=== PATIENT | female | born 1960 | race Caucasian/White ===

== ENCOUNTER 2016-08-16 10:14 | Day surgery (SDC) | payer OTHER ==
[~2016-08-16 10:14] MED LIST: Buffered Lidocaine 1% SYRIN* 3 ML/SYR SYRINGE INTRADERM ONE; Famotidine TAB* 20 MG PO ONE; Metoclopramide TAB* 10 MG PO ONE
[2016-08-16] MEDS ORDERED: Famotidine TAB* 20 MG ONE (10:15)
[2016-08-16] MEDS ORDERED: Metoclopramide TAB* 10 MG ONE (10:15)
[2016-08-16] MEDS ORDERED: Bupivacaine 0.5% W/EPI SDV* 30 ML VIAL ONE (13:04)
[2016-08-16] MEDS ORDERED: Lidocaine 2% PF * 5 ML VIAL ONE (13:08)
[2016-08-16] MEDS ORDERED: Propofol* 10 MG/ML 20 ML BTL IV PUSH ONE (13:08)
[2016-08-16] MEDS ORDERED: Atracurium* 10 MG/ML 10 ML VIAL ONE (13:08)
[2016-08-16] MEDS ORDERED: fentaNYL* 50 MCG/ML 2 ML VIAL (100 MCG VIAL) ONE (13:08)
[2016-08-16] MEDS ORDERED: Ondansetron INJ* 2 MG/ML VIAL IV PRN (13:51)
[2016-08-16] MEDS ORDERED: oxyCODONE/Acetamin 5/325 MG* TAB PO PRN ×2 (13:51→14:41)
[2016-08-16] MEDS ORDERED: fentaNYL* 50 MCG/ML 2 ML VIAL (100 MCG VIAL) IV PRN (13:51)
[2016-08-16] MEDS ORDERED: DiMENhydriNATE IV* 50 MG/ML VIAL IV PUSH PRN (13:51)
[2016-08-16] MEDS ORDERED: DiMENhydriNATE IV* 50 MG/ML VIAL ONE (15:21)
[2016-08-16 15:57] VITALS: BP 109/67
--- NOTE | 2016-08-17 06:15 | OP ---
DATE OF OPERATION: 08/16/16 [facility] DATE OF : 60 SURGEON: Andres Bernal MD RETAIL DELIVERY DRIVER: TARAN Bernard ANESTHESIOLOGIST: Dr. Guerrero. ANESTHESIA: General endotracheal. PRE-OP DIAGNOSIS: Symptomatic cholelithiasis. POST-OP DIAGNOSES: 1. Symptomatic cholelithiasis. 2. Umbilical hernia. OPERATIVE PROCEDURES: 1. Laparoscopic cholecystectomy. 2. Open umbilical hernia repair. ESTIMATED BLOOD LOSS: Minimal. IV FLUIDS: Crystalloid. SPECIMEN: Gallbladder contents. DRAINS: None. COMPLICATIONS: None. COUNTS: The instrument, needle, and sponge counts were correct. DESCRIPTION OF PROCEDURE: The patient was brought to the operating room, placed on table supine. Sequential compression devices were placed on both lower extremities and general anesthesia was administered. Her abdomen was prepped and draped in the usual sterile fashion. Time-out was performed. The patient's skin and soft tissue were infiltrated with local anesthetic prior to making each incision. Entry to the abdomen was through an infraumbilical curvilinear incision using an open technique. There was a small umbilical hernia defect less than 1 cm size that was identified and this had fat incarcerated within it, which was able to be reduced. A 5 mm trocar was placed through the umbilical hernia defect into the peritoneal cavity, which was then insufflated with carbon dioxide to a pressure of 15 mmHg. Laparoscope was introduced and the addition of a 5 mm trocar in the subxiphoid position and 2 additional 5 mm trocars in the right upper quadrant. The initial trocar infraumbilically was replaced with a 12 mm trocar as well. The gallbladder was identified. It did not appear to be acutely inflamed. There were adhesions from omentum to the gallbladder. The gallbladder was grasped at the fundus, retracted cephalad, and the infundibulum was identified. The peritoneum investing the gallbladder was incised and peeled away using sharp and blunt dissection. The cystic artery and cystic duct were readily available and were able to be bluntly dissected out, doubly clipped, and divided after obtaining a critical view. The gallbladder was freed from its attachments to the liver using the hook, cautery, and staying in an avascular plane. There was an inadvertent cholecystotomy made and this spillage was minimized by grasping the site and using this as a site of retraction. After dividing the gallbladder attachments to the liver completely, it was placed into a retrieval bag and retrieved through the umbilical site. Subsequently, lavage was performed with a liter of warm saline in order to assure that the perihepatic spaces were clear of any inadvertent bile spillage. The clips were inspected and noted to be intact, and hemostasis was excellent. The ports were removed under direct visualization and carbon dioxide was released. The umbilical stalk was dissected free and the defects were identified. The umbilical hernia defect was closed with 0 Polysorb in a aiczxn-[id number]-[id number] fashion. The umbilical stalk was reapproximated to the anterior abdominal wall with 3-0 Polysorb. Skin incisions were closed with 4-0 Monocryl in a subcuticular fashion. Steri-Strips were applied. The patient tolerated the procedure well. She was extubated uneventfully and she was transferred to recovery room in stable condition. CC: Romy Gooden MD* [id number]/CPS #: [id number] [email or web address]
== END 2016-08-16 16:01 | disposition home or self-care (01) ==
LOC: OR 10:14
PROVIDERS: ATTEND Surgery
DX: K80.10 Calculus of gallbladder with chronic cholecystitis without obstruction (principal); K42.9 Umbilical hernia without obstruction or gangrene; Z87.891 Personal history of nicotine dependence
CPT/HCPCS: 88304; A9270-GY; C1776; J1240; J2704; J3010

== ENCOUNTER 2018-08-13 14:00 | Emergency (ER) | payer OTHER ==
--- OUTSIDE RECORDS SUMMARY | 2018-08-13 14:05 | XMS REPORT | Continuity of Care Document ---
:1960 External Reference #:[id number] Author Name RoxanaLOUISA Baires Address [address] [place] [address] Care Team Providers Name Role Phone Romy Gooden Care Team Information Compressor Service Technician Unavailable Romy Gooden Primary Care Physician Unavailable Payers Date Identification Numbers Payment Provider Subscriber Policy Number: [id number] [facility] Alma Lula Crum PayID: [id number] [address] [address] [place] [address] Advance Directives Description No Information Available Problems Description No Information Family History Date Family Member(s) Observation Comments General Breast Cancer sister. General Coronary Artery Disease (CAD) father's side. Father due to CT () - 56 yo Mother due to Auto Accident () First Daughter Unremarkable Number of Siblings Siblings: 2 First Sister Breast Cancer [place]? Second Sister alcoholism in remission s/p esophageal rupture. [facility]. Maternal Grandfather due to Stroke () - 60's Maternal Grandmother due to Natural Causes () - 87 yo Social History Type Date Description Comments Sex Unknown Marital Status Patient is Sleep Typically sleeps 7 hours a night doesn't have a regular sleep time. Occupation Unemployed Tobacco Use Start: Unknown End: Former Cigarette Smoker quit at about 45 yo Unknown 1 1/2 ppd x 15 years. ETOH Use Rarely consumes alcohol a couple of drinks a year. Exercise Type/Frequency Does not exercise Current currently Seat Belt/Car Seat Always uses a seat belt Currently Active The patient is currently not sexually active Allergies, Adverse Reactions, Alerts Date Description Reaction Status Severity Comments 07/15/1997 Sulfa Drugs Active 07/15/1997 Amoxicillin Active 01/20/2016 Penicillins Allergic asthma, Urticaria Active Medications Medication Date Status Form Strength Qnty SIG Indications Ordering Provider Citalopram / Active Tablets 20mg 90tabs 1 by Roxana Hanbromide 0000 mouth [place]ider, every day [employer] Multi For Her / Active Capsules once Unknown 0000 daily No Active 12/28/ Hx Unknown Medications 2017 - 2018 Nitrofurantoin 12/23/ Hx Capsules 100mg 10caps 1 by R35.0 Jamee Monohydrate/Macr 2018 - mouth [place], ocrystals 12/28/ twice a Afnp-C 2017 day x 5days with meals No Active 06/24/ Hx Unknown Medications 2016 - 2017 No Active 02/15/ Hx Unknown Medications 2015 - 2015 Physical 02/15/ Hx evaluate M25.551 Romy Joseph Therapy 2015 - and treat Giacomo, 06/24/ left hip M.D. 2016 pain. Medrol 02/15/ Hx TBPK 4mg 21unit use as M25.551 Romy Joseph 2016 - s directed Giacomo, 06/24/ M.D. 2017 Glucosamine 10/21/ Hx Capsules 1500Com once Constance Chondroitin 1500 2015 - daily Jez Fernandez 02/15/ [employer] 2016 No Active 09/01/ Hx Unknown Medications 2015 - 2015 Zovirax 08/25/ Hx Ointment 5% 30gm Apply to Emy 2015 - affected TEREZA Chairez 02/15/ area 2016 every 3 hours, six times a day until healed Neomycin Sulfate 01/26/ Hx Tablets 500mg 1 po qd Emy 2014 - [place] 2014 No Active 10/17/ Hx Unknown Medications 2014 - 2014 Cefuroxime 10/17/ Hx Tablets 500mg 14tabs 1 by 611.72 Emy Axetil 2014 - mouth [employer] 10/24/ twice a 2014 day x 7 days Physical Therapy 10/17/ Hx evaluate 719.45 Emy 2014 - and treat Contreras [employer] 01/26/ right hip 2014 pain Fexofenadine HCL 09/22/ Hx Tablets 180mg 30tabs 1 po qd Roxaan 2008 - chon Agarwal, 06/17/ M.D. 2009 may take Sudafed bid Elizabeth D 24H 04/10/ Hx 10unit 1 po qd 388.9 Chemo Vega 2008 Thelma Vyas M.D. 2008 Note 12/29/ Hx PT Had HX Jamee 2004 - Of [place], 12/31/ Chicken Afnp-C 2005 Pox AT Age 6 [place] 04/18/ Hx One qd Family 2001 - Medicine 06/17/ Associates 2010 [place] Zithromax 03/09/ Hx 250mg 4units 1 Tab qd Sun 1998 - 2 Mellisa, 03/14/ Thru 5 Afnp-C 1998 Ceftin 05/30/ Hx 250mg 20unit PO bid Mike Lundberg 1998 - For 10 Breiman, 06/09/ Days M.D. 1998 Doxycycline 07/15/ Hx 100mg 20unit 1 PO bid Tylor Shaikh 1997 - s Midura, 05/20/ M.D. 1998 Medications Administered in Office Medication Date Status Form Strength Qnty SIG Indications Ordering Provider TB Intradermal Administered Injection Romy Weems 016 Yadi Gooden TB Intradermal Administered Injection Romy Weems 015 Yadi Gooden Immunizations CPT Code Status Date Vaccine Lot # [id number] Given 05/06/2016 Hepatitis B Immunization, adult dosage, for [id number] intramuscular use 64298 Given 01/11/2016 Influenza Vac, Quadrivalent, [place] [id number] Given 12/18/2015 Hepatitis B Immunization, adult dosage, for [id number] intramuscular use 87316 Given 10/29/2015 MMR Virus Immunization [id number] 64883 Given 10/22/2015 Hepatitis B Immunization, adult dosage, for [id number] intramuscular use 36222 Given 10/22/2015 Tdap Tetanus, W Pertussis [id number] 79032 Given 01/26/2015 MMR Virus Immunization [id number] 27035 Given 06/17/2009 Tetanus And Diptheria Adult Preservative Free [id number] >7Yrs Vital Signs Date Vital Result Comment 07/17/2018 1:42pm BP Systolic 98 mmHg BP Diastolic 52 mmHg Heart Rate 60 /min Body Temperature 97.0 F Respiratory Rate 17 /min Height 61 inches 5'1" Weight 124.25 lb BMI (Body Mass Index) 23.5 kg/m2 Right Visual Acuity Distance 20/25 w/ corrected lenses Left Visual Acuity Distance 20/30 w/ corrected lenses 06/19/2018 7:28pm BP Systolic 108 mmHg BP Diastolic 68 mmHg Heart Rate 76 /min Body Temperature 97.5 F Respiratory Rate 17 /min Height 61 inches 5'1" Weight 124.50 lb BMI (Body Mass Index) 23.5 kg/m2 12/23/2017 9:16am BP Systolic 110 mmHg BP Diastolic 60 mmHg Heart Rate 68 /min Body Temperature 97.9 F Respiratory Rate 16 /min Height 61 inches 5'1" Weight 123.00 lb BMI (Body Mass Index) 23.2 kg/m2 06/24/2016 10:45am BP Systolic 100 mmHg BP Diastolic 70 mmHg Heart Rate 60 /min Body Temperature 98.1 F Respiratory Rate 16 /min Height 61 inches 5'1" Weight 127.00 lb BMI (Body Mass Index) 24.0 kg/m2 02/16/2016 11:22am BP Systolic 110 mmHg BP Diastolic 68 mmHg Heart Rate 80 /min Body Temperature 98.1 F Respiratory Rate 18 /min Height 61 inches 5'1" Weight 137.00 lb BMI (Body Mass Index) 25.9 kg/m2 10/22/2015 3:00pm BP Systolic 107 mmHg BP Diastolic 80 mmHg Heart Rate 68 /min Body Temperature 97.9 F Respiratory Rate 18 /min Height 61 inches 5'1" Weight 127.00 lb BMI (Body Mass Index) 24.0 kg/m2 01/26/2015 9:09am BP Systolic 89 mmHg BP Diastolic 58 mmHg Heart Rate 68 /min Body Temperature 96.3 F Height 61 inches 5'1" Weight 122.00 lb BMI (Body Mass Index) 23.0 kg/m2 12/05/2014 10:15am BP Systolic 118 mmHg BP Diastolic 64 mmHg Heart Rate 70 /min Body Temperature 97.5 F Respiratory Rate 16 /min Height 61 inches 5'1" Weight 124.00 lb BMI (Body Mass Index) 23.4 kg/m2 10/17/2014 8:17am BP Systolic 90 mmHg BP Diastolic 70 mmHg Heart Rate 72 /min Body Temperature 98.0 F Respiratory Rate 18 /min Height 61 inches 5'1" Weight 125.00 lb BMI (Body Mass Index) 23.6 kg/m2 06/17/2009 9:08am BP Systolic 118 mmHg BP Diastolic 60 mmHg Heart Rate 84 /min Body Temperature 96.4 F Height 61 inches 5'1" Weight 124.00 lb BMI (Body Mass Index) 23.4 kg/m2 Right Visual Acuity Distance 20/20 Left Visual Acuity Distance 20/30 04/10/2008 4:01pm BP Systolic 90 mmHg BP Diastolic 60 mmHg Heart Rate 64 /min Body Temperature 96.9 F 11/30/2007 4:49pm BP Systolic 118 mmHg BP Diastolic 52 mmHg Heart Rate 80 /min Body Temperature 98.7 F Weight 132.00 lb 04/18/2002 10:07am BP Systolic 110 mmHg BP Diastolic 60 mmHg Heart Rate 72 /min Weight 125.00 lb 09/12/2001 3:09pm BP Systolic 104 mmHg BP Diastolic 64 mmHg Body Temperature 97.7 F Weight 124.00 lb 03/09/1999 8:43pm BP Systolic 96 mmHg BP Diastolic 60 mmHg Body Temperature 99.8 F Weight 113.00 lb 05/30/1998 9:32am Body Temperature 95.7 F 05/20/1998 7:35pm Body Temperature 95.5 F Weight 108.00 lb 07/15/1997 7:53pm Body Temperature 97.5 F Height 60 inches 5'0" Weight 122.00 lb Results Test Date Facility Test Result H/L Range Note [place] test [place] [facility] [place]> finding Thinprep w/rfx([facility]) Ua - Micro (a) 12/23/2017 [facility] Appearance clear (607)- - Color yellow Glucose, Urine (Fma/CMC/CTX) neg Bilirubin neg Ketones trace # SP Grav 1.020 Blood trace-intact # PH 7.0 Protein neg Urobil 0.2 Nitrite neg Leukocytes (a/CMC/[facility]) neg Hyaline - /Lpf Granular - /Lpf WBC (a,[facility]) - RBC 0-2 # Mucus - /Lpf Epith rare /Lpf # Bacteria rare /Hpf # Amorphous - /Lpf Crystals, Fluid (Fma/CMC/CTX) - Z#Comments - Laboratory test finding 07/14/2016 [facility] [place] Folic Acid (Folate) 8.37 ng/mL N > 3.99 Vitamin D Total 25(Oh) 20.5 ng/mL Low 30-50 Copper 1.19 g/mL N 0.75-1.45 1 Zinc Level 0.83 g/mL N 0.66-1.10 2 Ceruloplasmin 26 mg/dL N 18-53 3 Lyme AB/Western 06/24/2016 [facility] Lyme IgG/IgM <0.91 ISR 0.00-0.90 4, 5 Blot Reflex [address] [place] [address] (417)- - Lyme Disease Ab, Quant, IgM <0.80 index 0.00-0.79 6 Laboratory test finding 06/24/2016 [facility] TSH 1.63 mIU/L 0.50- 6.00 Free T4 1.19 ng/dL 0.75-1.54 Free T3 2.63 pg/mL 2.00-4.90 Comprehensive Metabolic Prof 06/24/2016 [facility] Sodium 138 mEq/L 134-149 Potassium 4.2 mEq/L 3.6-5.5 Chloride 103 mEq/L 94-112 Carbon Dioxide 24 mEq/L 21-32 Glucose 95 mg/dL 70-105 BUN 10 mg/dL 6-26 Creatinine 0.8 mg/dL 0.6-1.4 BUN/Creat Ratio 12.5 CALC 8.0-36.0 Calcium 9.2 mg/dL 8.6-10.2 Total Protein 7.2 g/dL 6.4-8.3 Albumin 4.4 g/dL 3.8-5.5 Globulin 2.8 g/dL 2.0-4.8 A/G Ratio 1.6 CALC 0.6-2.3 Alk. Phosphatase 53 U/L 30-110 Alt (SGPT) 14 U/L 7-35 Ast (Sgot) 19 U/L 5-34 Total Bilirubin 0.5 mg/dL 0.2-1.3 GFR Non- >60 ml/min/1.73m^ >=60 GFR >60 ml/min/1.73m^ >=60 Laboratory test 06/24/2016 [facility] Vitamin B-12 403 pg/mL 230- 1050 finding Complete Blood 06/24/2016 [facility] WBC 7.6 x10^3/UL 3.6-9.6 Count RBC 4.30 x10^6/UL 3.90-5.70 HGB 12.3 g/dL 12.1-17.2 HCT 37 % 36-50 MCV 85.0 fL 82.2-97.4 MCH 28.6 pg 27.6-33.3 MCHC 33.6 g/dL 33.0-35.5 RDW 14.1 % High 11.6-13.7 PLT 349 x10^3/UL 150-400 MPV 6.7 fL Low 7.4-10.4 Gran # 4.7 x10^3/UL 1.5-7.2 Lymph# 2.5 x10^3/UL 0.7-4.9 Anderson# 0.4 x10^3/UL 0.1-0.9 Gran % 61.5 % 42.2-75.2 Lymph % 32.9 % 20.5-51.1 Anderson% 5.6 % 1.7-9.3 Rubeola 01/12/2016 [facility] Rubeola Ab, 177.0 Immune 7 Antibodies, Igg [address] [facility] IgG AU/mL >29.9 [place] [address] (607)- - Laboratory test 01/12/2016 [facility] PDF SEE IMAGE finding [address] [facility] [id number] [place] [address] 20 (607)- - Rubeola 10/22/2015 [facility] Rubeola Ab, <25.0 Low Immune 8, 9 Antibodies, Igg [address] [facility] IgG AU/mL >29.9 [place] [address] (607)- - CBC Electronic 12/23/2014 [facility] WBC 10.3 High 3.6-9.6 10 (Fma) (607)- - RBC 4.09 3.90-5.70 Hemoglobin (Fma/CMC/CTX) 12.1 g/dL 12.1 - 17.2 Hematocrit (Fma/CMC/CTX) 36.6 % 36.1 - 50.3 Platelets 356 10^3/ul 150-400 Lymph% 32.7 % 17.0-48.0 Mixed% 3.8 Neutrophils % 63.5 Mean Corpuscular Vol 89 82.2-97.4 Mean Corpuscular Hemoglobin 29.7 27.6-33.3 Mean Corpuscular Hemo Concen 33.2 32.0-36.0 RDW 13.9 High 11.6-13.7 Mean Platelet Volume 6.3 5.5-11.0 Measles/Mumps/Rubella 12/19/2014 [facility] Rubella 18.50 Immune 11, Immunity [address] [facility] Antibodies, index >0.99 12 [place] [address] IgG (607)- - Rubeola Ab, IgG <25.0 AU/mL Low Immune >29.9 13 Mumps Abs, IgG 264.0 AU/mL Immune >10.9 14 Laboratory test 12/19/2014 [facility] Varicella-Zoster V 1179 Immune 15 finding [address] [facility] Ab, IgG index >165 [place] [address] (607)- - Hep B Surface Ab Non Reactive 16 Laboratory test finding 12/05/2014 [facility] TSH 2.43 mIU/L 0.50- 6.00 Free T4 1.05 ng/dL 0.75-1.54 Iron/Tibc,%Sat Group 12/05/2014 [facility] Iron 63 g/dL 30-158 17 28 [place], [place] [id number] [phone] Total Iron Binding Cap. 305 g/dL 250-450 % Iron Saturation 20.7 % 13.0-45.0 Ua - Micro (Fma) 12/05/2014 [facility] Appearance CLEAR (607)- - Color YELLOW Glucose, Urine (Fma/CMC/CTX) NEG Bilirubin NEG Ketones NEG SP Grav 1.010 Blood TRACE-LYSED # PH 7.0 Protein NEG Urobil 0.2 Nitrite NEG Leukocytes (Fma/CMC/[facility]) NEG Hyaline - /Lpf Granular - /Lpf WBC (Fma,[facility]) 0-1 # RBC 0-1 # Mucus - /Lpf Epith RARE /Lpf # Bacteria TRACE /Hpf # Amorphous - /Lpf Crystals, Fluid (Fma/CMC/CTX) - Z#Comments - Comprehensive Metabolic Prof 12/05/2014 [facility] Sodium 139 mEq/L 134-149 Potassium 4.6 mEq/L 3.6-5.5 Chloride 103 mEq/L 94-112 Carbon Dioxide 25 mEq/L 21-32 Glucose 101 mg/dL 70-105 BUN 13 mg/dL 6-26 Creatinine 0.7 mg/dL 0.6-1.4 BUN/Creat Ratio 18.6 CALC 8.0-36.0 Calcium 9.2 mg/dL 8.6-10.2 Total Protein 7.8 g/dL 6.4-8.3 Albumin 4.7 g/dL 3.8-5.5 Globulin 3.1 g/dL 2.0-4.8 A/G Ratio 1.5 CALC 0.6-2.3 Alk. Phosphatase 48 U/L 30-110 Alt (SGPT) 20 U/L 7-35 Ast (Sgot) 21 U/L 5-34 Total Bilirubin 0.4 mg/dL 0.2-1.3 GFR Non- >60 ml/min/1.73m^ >=60 GFR >60 ml/min/1.73m^ >=60 Laboratory test finding 12/05/2014 [facility] Vitamin D25 29 Low 30- 100 18 Ferritin 25 ng/mL 15-200 Lipid Profile 12/05/2014 [facility] Cholesterol 247 mg/dL High 120- 200 Triglycerides 69 mg/dL 30-200 HDL Cholesterol 76 mg/dL 30-85 LDL (Calculated) 157 CALC High 0-129 VLDL Cholesterol 14 mg/dL 0-50 HDL Risk Factor 3.3 CALC 0.0-4.4 Complete Blood Count 12/05/2014 [facility] WBC 11.2 x10^3/UL High 3.6-9.6 19 RBC 4.72 x10^6/UL 3.90-5.70 HGB 14.3 g/dL 12.1-17.2 HCT 42 % 36-50 MCV 89.0 fL 82.2-97.4 MCH 30.3 pg 27.6-33.3 MCHC 33.9 g/dL 33.0-35.5 RDW 13.7 % 11.6-13.7 PLT 363 x10^3/UL 150-400 MPV 6.5 fL Low 7.4-10.4 Gran # 7.9 x10^3/UL High 1.5-7.2 Lymph# 2.8 x10^3/UL 0.7-4.9 Anderson# 0.5 x10^3/UL 0.1-0.9 Gran % 69.5 % 42.2-75.2 Lymph % 25.2 % 20.5-51.1 Anderson% 5.3 % 1.7-9.3 Xray 10/29/2014 [facility] Hip Complete Min 2 Views RT <pending> [facility] [phone] Ultrasound Breast Right <pending> Mammography, Bilateral <pending> Laboratory test 11/18/2013 [facility] [place] Disease Negative Negative 20 finding Serology Comprehensive 06/17/2009 [facility] Albumin 4.4 g/dL 3.8-5.5 Metabolic Prof Alk. Phos. 40 U/L 30-110 Alt (SGPT) 14 U/L 7-35 Ast (Sgot) 18 U/L 5-34 BUN 13 mg/dL 6-26 Calcium 8.6 mg/dL 8.6-10.2 Chloride 104 mEq/L 94-112 Creatinine 0.8 mg/dL 0.6-1.4 Carbon Dioxide 23 mEq/L 21-32 Glucose 79 mg/dL 70-105 Sodium 141 mEq/L 134-149 Total Bilirubin 0.3 mg/dL 0.2-1.3 Total Protein 6.6 g/dL 6.3-8.1 Potassium 4.1 mEq/L 3.6-5.5 Globulin 2.2 g/dL 2.0-4.8 A/G Ratio 2.0 Calc 0.6-2.2 BUN/Creat Ratio 15.5 Calc 8.0-36.0 Lipid Profile 06/17/2009 [facility] Cholesterol 174 mg/dL 120-200 HDL 68 mg/dL 30-85 Triglycerides 45 mg/dL 30-200 HDL Risk Factor 2.6 CALC Low 4.2-7.0 LDL (Calculated) 97 CALC 0-129 VLDL (Calculated) 9 mg/dL 0-50 Laboratory test finding 06/17/2009 [facility] TSH 1.72 mIU/L 0.50- 6.00 CBC (a) 06/17/2009 [facility] WBC 7.7 3.6-9.6 (607)- - RBC 4.36 3.90-5.70 Hemoglobin (Fma/CMC/CTX) 11.9 g/dL Low 12.1 - 17.2 Hematocrit (a/CMC/CTX) 37.7 % 36.1 - 50.3 Mean Corpuscular Vol 86.5 82.2-97.4 Mean Corpuscular Hemaglobin 27.3 Low 27.6-33.3 Mean Corpuscular Hemo Concen 31.6 Low 33.0-36.0 Platelets 318 10^3/ul 150-400 Lymph% 33.9 20.5-51.1 Mixed% 9.1 Neutrophils % 57.0 RDW 14.4 High 11.6-13.7 Mean Platelet Volume 8.9 7.4-10.4 Ua - Micro (Fma) 06/17/2009 [facility] Appearance clear (607)- - Color yellow Glucose - Bilirubin - Ketones - SP Grav >1.030 Blood small # PH 5.5 Protein trace (ssa) # Urobil 0.2 Nitrite - Leukocytes (Fma/CMC/[facility]) trace # Hyaline - /Lpf Granular - /Lpf WBC (Fma,[facility]rex) 10-15 # RBC 1-3 Mucus - /Lpf Epith mod amt /Lpf Bacteria 1+ /Hpf Amorphous - /Lpf Crystals, Fluid (Fma/CMC/CTX) - Z#Comments - Laboratory test finding 09/12/2001 [facility] Throat Culture NEGATIVE (607)- - 1 ADDITIONAL INFORMATION This test was developed and its performance characteristics determined by [facility] in a manner consistent with CLIA requirements. This test has not been cleared or approved by the U.S. Food and Drug Administration. Test Performed by: [facility] [place] [address] 2 ADDITIONAL INFORMATION This test was developed and its performance characteristics determined by [facility] in a manner consistent with CLIA requirements. This test has not been cleared or approved by the U.S. Food and Drug Administration. Test Performed by: [facility] [place] [id number] Adults: Males: 18-36 mg/dL Females: 18-53 mg/dL Pediatrics: Males (mg/dL) Females (mg/dL) 0-30 Days 8-25 3-28 31 Days-11 Month 15-48 15-43 1-3 Years 25-56 29-54 4-6 Years 29-56 26-54 7-9 Years 25-52 23-48 10-12 Years 21-51 21-48 13-15 Years 20-50 21-46 16-18 Years 20-45 22-50 The pediatric ranges are derived from the following criteria: Cande MENDIETA, Shelly ABRAHAM, Lashonda J et al Pediatric reference ranges for Czds-2-Fkgvwrgqnwkdh and ceruloplasmin. Clin. Chem 1997; 43:S1999 Pediatric Reference Ranges, 2nd., [place] Candeet al. editors. [employer], [place], [place] 1997. Test Performed at: [facility], [address] [place] [address] B Alfonso CANTRELL, FCAP Test Performed by: [facility] [address] [address] [place] [address] 4 1SST 5 Negative <0.91 Equivocal 0.91 - 1.09 Positive >1.09 6 Negative <0.80 Equivocal 0.80 - 1.19 Positive >1.19 IgM levels may peak at 3-6 weeks post infection, then gradually decline. 7 Negative <25.0 Equivocal 25.0 - 29.9 Positive >29.9 Presence of antibodies to Rubeola is presumptive evidence of immunity except when acute infection is suspected. 8 1 sst 9 Negative <25.0 Equivocal 25.0 - 29.9 Positive >29.9 Presence of antibodies to Rubeola is presumptive evidence of immunity except when acute infection is suspected. 10 results boni'd 11 2 SSTS 12 Non-immune <0.90 Equivocal 0.90 - 0.99 Immune >0.99 13 Negative <25.0 Equivocal 25.0 - 29.9 Positive >29.9 Presence of antibodies to Rubeola is presumptive evidence of immunity except when acute infection is suspected. 14 Negative <9.0 Equivocal 9.0 - 10.9 Positive >10.9 A positive result generally indicates past exposure to Mumps virus or previous vaccination. 15 Negative <135 Equivocal 135 - 165 Positive >165 A positive result generally indicates exposure to the pathogen or administration of specific immunoglobulins, but it is not indication of active infection or stage of disease. 16 Non Reactive: Inconsistent with immunity, less than 10 mIU/mL Reactive: Consistent with immunity, greater than 9.9 mIU/mL 17 FASTING; 1 SST 18 FASTING 19 RESULTS VERIFIED BY REPEAT ANALYSIS 20 Serologic response to B. burgdorferi infection is not detected, but cannot rule out early infection during which low or undetectable antibody levels to B. burgdorferi may be present. If clinically indicated, a new serum specimen should be submitted in 7-14 days. Test Performed by: [address] [address] [employer] Helper: Morgan Kee III, M.D. Procedures Date Code Description Status 07/17/2018 [id number] Mammogram Completed 06/19/2018 48157 Brief Emotional/Behav Assessment W/ Scoring Doc Per Completed Standard Inst 08/23/2017 [id number] Mammogram Completed 10/14/2016 [id number] Colonoscopy Completed 07/14/2016 [id number] Mammogram Completed 06/24/2016 [id number] Colonoscopy Completed 10/29/2014 [id number] Mammogram Completed 03/07/2013 [id number] Mammogram Completed 06/24/2009 [id number] Mammogram Completed 12/06/2007 [id number] Mammogram Completed Encounters Type Date Location Provider Dx Diagnosis Office Visit 06/19/2018 Main Office Roxana Maloney, F33.8 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 [employer]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 R45.851 Suicidal ideations Office Visit 12/23/2017 9:15a Main Office Jamee Mejía, R35.0 Frequency of Afnp-C micturition Office Visit 06/24/2016 10:30a Main Office LOUISA Ochao Z12.31 Encntr screen mammogram for malignant neoplasm of breast Z12.11 Encounter for screening for malignant neoplasm of colon R53.83 Other fatigue R10.811 Right upper quadrant abdominal tenderness Office Visit 02/16/2016 11:20a [facility] Romy Joseph M25.551 Pain in right Yadi Gooden hip K21.9 Gastro-esophageal reflux disease without esophagitis Office Visit 10/29/2015 11:15a Main Office Romy Joseph Z11.1 Encounter for Yadi Gooden screening for respiratory tuberculosis Z23 Encounter for immunization Office Visit 10/22/2015 3:00p [facility] Constance Fernandez Z00.00 Encntr for [employer] general adult medical exam w/o abnormal findings Z23 Encounter for immunization M79.673 Pain in unspecified foot Office Visit 01/26/2015 9:00a Main Office Emy Chairez, TEREZA Z23 Encounter for immunization D64.9 Anemia, unspecified E78.5 Hyperlipidemia, unspecified Office Visit 12/10/2014 2:00p Main Office Romy Joseph V74.1 Screening Yadi Gooden Examination Pulmonary Tuberculosis Office Visit 12/05/2014 10:00a Main Office Romy Joseph V70.0 Examination General Yadi Gooden Medical Routine AT [facility] Care Facility 268.9 Vitamin D Deficiency Unspec 311 Depressive Disorder Not Elsewhere Spec 285.9 Anemia Unspec 599.72 Microscopic Hematuria Office Visit 10/17/2014 8:15a Main Office Emy Chairez NP 611.72 Lump Or Mass Breast 719.45 Pain Joint Pelvic Region & Thigh Office Visit 06/17/2009 9:00a Main Office Roxana givens V70.0 Examination General Yadi Agarwal Medical Routine AT Health Care Facility 599.72 Microscopic Hematuria V06.5 Tetanus Diphtheria (DT) v06.5 Tetanus Diphtheria (DT) V17.3 History Family Ischemic Heart Disease V16.3 History Family Malignant Neoplasm Breast Office Visit 04/10/2008 3:30p Main Office Chemo Vega 388.9 Ear Disorder Unspec Yadi Vyas Office Visit 11/30/2007 4:15p Main Office Constance Fernandez, 611.72 Lump Or Mass Breast [employer] Office Visit 12/29/2004 4:30p Main Office Jamee V65.49 Counseling Other Spec Sameer Mjeía Office Visit 04/18/2002 10:00a Main Office Constance Fernandez V70.5 Examination Health Of [employer] Defined Subpopulations Office Visit 09/12/2001 3:00p Main Office Sameer Riggins Plan of Treatment 07/17/2018 - VADMI UrbanPF33.8 Other recurrent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Comments:Notably nqrubcszW67.851 Suicidal ideationsComments:Notably hyzzrjyvB94.0 Primary generalized (osteo)arthritisComments:Motion is the lotionRoutine, daily heatTry Tylenol for pain first thing, move to ibuprofen or naproxen only if Tylenol doesn't workCall CANDIDA if condition changes/worsens in any wayB00.89 Other herpesviral infectionComments:If you experience recurrent cold sores we should talk, but this should clear upLysine is an over-the- counter amino acid which could help prevent the cold agyifU30.39 Encounter for other screening for malignant neoplasm of breastComments:I will ask insurance when you can have the mammogram, maybe now, maybe AugustZ.419 Encounter for gynecological examination (general) (routine) without abnormal findingsNew Labs: Free T4 (Fma/[facility]), Ordered: 07/17/18CCS-Comp And Lipid (Fma), Ordered: 07/17TSH (Fma/CMC/[facility]), Ordered: 07/17/18CBC Electronic (a), Ordered: Comments:You are in generally very good healthall screenings and immunizations currentPap every 5 years if this pap is normal Mammo every yearAllComments:Medication Management Patient Understands medications he 's taking? Yes No Are there Barriers to Adherence? Yes No Has the patient been asked about herbal supplements and therapies, andOTC meds? Yes No As always, we strongly encourage a healthy diet and making physical activity a part of your every day life. If you have questions about how or where to start, please contact the office.
[2018-08-13 14:49] VITALS: BP 104/71
--- NOTE | 2018-08-13 15:09 | UC ---
Lower Extremity/Ankle HPI - HPI Summary HPI Summary: 57 year old female with no PMH, on 08/11 metal cabinet fell on L great toe, + ambulatory afterwards with mild pain , + pain, + bruising, + swelling. + full movement. no prior injuries full feeling - History of Current Complaint Chief Complaint: UCLowerExtremity Stated Complaint: LT FOOT INJURY Time Seen by Provider: 08/13/18 14:53 Hx Obtained From: Patient ?: No Onset/Duration: Sudden Onset, Lasting Hours Severity Initially: Moderate Severity Currently: Moderate Pain Intensity: 3 Pain Scale Used: 0-10 Numeric Aggravating Factor(s): Standing Alleviating Factor(s): Rest, Elevation Able to Bear Weight: Yes Related History: Occupational Injury - Allergies/Home Medications Allergies/Adverse Reactions: Allergies Allergy/AdvReac Type Severity Reaction Status Date / Time Penicillins Allergy Hives Verified 08/13/18 14:44 Sulfa (Sulfonamide Allergy Hives Verified 08/13/18 14:44 Antibiotics) Home Medications: Home Medications Citalopram Hydrobromide [Citalopram HBr] 1 tab PO DAILY 08/13/18 [History Confirmed 08/13/18] PMH/Surg Hx/FS Hx/Imm Hx Previously Healthy: Yes - Surgical History Surgical History: None - Social History Alcohol Use: Rare Substance Use Type: Prescribed Smoking Status (MU): Former Smoker Amount Used/How Often: 18 years (stopped when and nursing) 1- 1.5ppd When Did the Patient Quit Smoking/Using Tobacco: quits over 10 years ago Review of Systems All Other Systems Reviewed And Are Negative: Yes Musculoskeletal: Positive: Arthralgia, Edema, Myalgia Is Patient Immunocompromised?: No Physical Exam Triage Information Reviewed: Yes Appearance: Well-Appearing, No Pain Distress, Well-Nourished Vital Signs: Initial Vital Signs Temp 97.8 F 08/13/18 14:40 Pulse 61 08/13/18 14:40 Resp 12 08/13/18 14:40 BP 104/71 08/13/18 14:40 Pulse Ox 100 08/13/18 14:40 Vital Signs Reviewed: No Eyes: Positive: Conjunctiva Clear Musculoskeletal: Positive: Strength Intact, ROM Intact, Edema @ - L great toe Neurological Exam: Normal Neurological: Positive: Other: - SITLT Skin: Positive: Rashes, Other - L great toe edema with ecchymosis extending from tip of toe to MCP, TTP over distal phalanx, no skin opening/ bleeding noted. Lower Extremity Course/Dx - Course Course Of Treatment: radioraph- + for fracture, post-op shoe, follow up with orthopedics within 1-2 weeks for repeat x-ray, pst-op shoe x 4-6 weeks RICE, patient would like to continue working, OK to work with post-op shoe - Differential Dx/Diagnosis Provider Diagnosis: Fracture of great toe, left, closed Discharge - Sign-Out/Discharge Documenting (check all that apply): Patient Departure All imaging exams completed and their final reports reviewed: Yes - Discharge Plan Condition: Good Disposition: HOME Patient Education Materials: Toe Fracture (ED) Referrals: Romy Gooden MD [Primary Care Provider] - Sarita Ruiz MD [Medical Doctor] - Additional Instructions: - Pst-op shoe or hard heeled shoe that DOES NOT BEND x 4-6 weeks when up - Follow up with orthopedics within 1-2 weeks for re-eval - elevate, ice/ heat - Billing Disposition and Condition Condition: GOOD Disposition: Home
== END 2018-08-13 15:25 | disposition home or self-care (01) ==
LOC: UCEAST 14:00
DX: S92.425A Nondisplaced fracture of distal phalanx of left great toe, initial encounter for closed fracture (principal); W20.8XXA Other cause of strike by thrown, projected or falling object, initial encounter; Y92.9 Unspecified place or not applicable; Z88.0 Allergy status to penicillin; Z88.2 Allergy status to sulfonamides; Z87.891 Personal history of nicotine dependence
CPT/HCPCS: 99212; G0463

== ENCOUNTER 2022-02-10 13:25 | Inpatient (IN) ==
[2022-02-10 16:28] LABS: ABS Basophils 0.1 10^3/ul (0-0.2); ABS Eosinophils 0.3 10^3/ul (0-0.6); ABS Lymphocytes 2.6 10^3/ul (1.0-4.8); ABS Monocytes 0.7 10^3/ul (0-0.8); ABS Neutrophils 7.5 10^3/ul (1.5-7.7); Hematocrit 43 % (35-47); Hemoglobin 14.1 g/dL (12.0-16.0); Lymphocyte % 23.4 %; Mean Corpuscular HGB Conc 33 g/dL (31-36); Mean Corpuscular Hemoglobin 28 pg (27-31); Mean Corpuscular Volume 86 fL (80-97); Mean Platelet Volume 6.5 fL (7.4-10.4); Nucleated Red Blood Cells % 0.1; Platelet Count 355 10^3/uL (150-450); Red Blood Count 5.06 10^6 /uL (3.70-4.87); Red Cell Distribution Width 13 % (10-15); White Blood Count 11.2 10^3/uL (3.5-10.8)
[2022-02-10 16:57] LABS: ALT 33 U/L (7-52); AST 23 U/L (13-39); Acetaminophen < 15 mcg/mL; Albumin 4.2 g/dL (3.2-5.2); Albumin/Globulin Ratio 1.4 (1-3); Alcohol, S < 13 mg/dL (<13); Alkaline Phosphatase 63 U/L (35-149); Anion Gap 6 mmol/L (2-11); Blood Urea Nitrogen 13 mg/dL (6-24); CO2 Carbon Dioxide 27 mmol/L (22-32); Calcium 9.5 mg/dL (8.6-10.3); Chloride 105 mmol/L (101-111); Globulin 2.9 g/dL (2-4); Glucose 86 mg/dL (70-100); Potassium 4.2 mmol/L (3.5-5.0); Salicylate < 2.50 mg/dL (<30); Sodium 138 mmol/L (135-145); Total Protein 7.1 g/dL (6.4-8.9); eGFR CKD-EPI 90.5 (>60)
[2022-02-10 17:09] LABS: TSH Ultra Thyroid Stim Horm 2.97 mcIU/mL (0.34-5.60)
[2022-02-10 17:34] LABS: Urine Appearance Clear; Urine Bilirubin Negative (Negative); Urine Blood 2+ (Negative); Urine Color Straw; Urine Glucose Negative (Negative); Urine Ketones Negative (Negative); Urine Nitrite Negative (Negative); Urine Protein Negative (Negative); Urine Specific Gravity 1.004 (1.002-1.030); Urine Urobilinogen Negative (Negative)
[2022-02-10 17:42] LABS: Urine Bacteria Absent (Absent); Urine Red Blood Cell Trace(0-2/hpf) (Absent); Urine Squamous Epithelial Cell Present (Absent); Urine White Blood Cell Trace(0-5/hpf) (Absent)
[2022-02-10 17:46] LABS: Urine Benzodiazepine Screen None Detected (None Detect); Urine Cannabinoids Screen None Detected (None Detect); Urine Opiates Screen None Detected (None Detect)
[2022-02-10] MEDS ORDERED: Al Hydrox/Mg Hydrox/Simet LIQ 30 ML UDC PO PRN (22:13)
[2022-02-11 08:37] LABS: HDL Cholesterol 53.6 mg/dL
[2022-02-11 08:41] LABS: Vitamin B12 301 pg/mL (180-914)
[2022-02-11 08:45] LABS: Vitamin D Total 25(OH) 20.4 ng/mL (20-50)
[2022-02-11] MEDS: Vitamin THERAPEUTIC TAB PO SCH (09:08)
[2022-02-12] MEDS: Vitamin THERAPEUTIC TAB PO SCH (10:50)
[2022-02-13] MEDS: Vitamin THERAPEUTIC TAB PO SCH (09:00)
[2022-02-14 07:20] VITALS: BP 122/70
[2022-02-14] MEDS: Vitamin THERAPEUTIC TAB PO SCH (08:38)
== END 2022-02-14 15:34 | disposition home or self-care (01) | DRG 751 ==
LOC: ED 13:25 → EDHOLD 19:01 → BSU 21:08
PROVIDERS: ADMIT Psychiatry & Neurology Psychiatry; ATTEND Psychiatry & Neurology Psychiatry